=== PATIENT | male | born 1990 | race African-American/Black ===

== ENCOUNTER 2021-12-12 15:54 | Emergency (ER) | payer SELFPAY ==
[2021-12-12 15:56] VITALS: BP 142/81; PULSE 78; RESP 18; TEMP 36.4; O2SAT 100
--- NOTE | 2021-12-12 16:37 | PC.NURSE ---
PT states he wants to receive care somewhere cheaper
--- NOTE | 2021-12-12 22:10 | ED_ITS ---
HPI - General Adult General Chief complaint: Unspecified Stated complaint: constipation Time Seen by Provider: 12/12/21 16:28 Related Data Allergies Allergy/AdvReac Type Severity Reaction Status Date / Time No Known Allergies Allergy Unverified 10/02/17 06:35 [facility] Social History Social History Smoking status: Never smoker Course Vital Signs Vital signs: Vital Signs Temperature 97.5 F L 12/12/21 15:56 Pulse Rate 78 12/12/21 15:56 Respiratory Rate 18 12/12/21 15:56 Blood Pressure 142/81 H 12/12/21 15:56 Pulse Oximetry 100 12/12/21 15:56 Oxygen Delivery Room Air 12/12/21 15:56 Temperature 97.5 F L 12/12/21 15:56 Pulse Rate 78 12/12/21 15:56 Respiratory Rate 18 12/12/21 15:56 Blood Pressure 142/81 H 12/12/21 15:56 Pulse Oximetry 100 12/12/21 15:56 Oxygen Delivery Room Air 12/12/21 15:56 Medical Decision Making Vital Signs Vital Signs: Vital Signs Temperature 97.5 F L 12/12/21 15:56 Pulse Rate 78 12/12/21 15:56 Respiratory Rate 18 12/12/21 15:56 Blood Pressure 142/81 H 12/12/21 15:56 Pulse Oximetry 100 12/12/21 15:56 Oxygen Delivery Room Air 12/12/21 15:56 Temperature 97.5 F L 12/12/21 15:56 Pulse Rate 78 12/12/21 15:56 Respiratory Rate 18 12/12/21 15:56 Blood Pressure 142/81 H 12/12/21 15:56 Pulse Oximetry 100 12/12/21 15:56 Oxygen Delivery Room Air 12/12/21 15:56 Discharge Plan Discharge Patient Disposition: Left Without Being Sn Triaged Follow-up/Referrals: Rodney Toney MD [Primary Care Provider] -
== END 2021-12-12 16:41 | disposition left against medical advice (07) ==
LOC: ANHED 16:38
PROVIDERS: Emergency Provider Emergency Medicine; PCP Emergency Medicine
DX: R19.4 Change in bowel habit (principal)
CPT/HCPCS: 99199

== ENCOUNTER 2022-02-10 02:06 | Day surgery (SDC) | payer BC, SELFPAY ==
[2022-01-25 13:58] VITALS: BMI 25.5
--- NOTE | 2022-02-10 07:47 | WPDANESEPPF ---
Anes - Initial Pre Proc Eval Procedure: Operation Date: 02/10/22 10:00 Proposed Procedures p Colonoscopy - Lisandro Rosado MD Date/Time: 02/10/22 07:47 Surgeon: Lisandro Rosado MD Pre Op Diagnosis: melena, anemia Patient Data Age: 31 Gender: M Height: 1.85 m Weight: 87.9 kg Allergies Allergy/AdvReac Type Severity Reaction Status Date / Time No Known Allergies Allergy Verified 02/10/22 08:38 Home Medications Medication Instructions Recorded Confirmed Type docusate sodium 100 mg capsule 100 mg PO ONCE PRN st 12/21/21 02/10/22 History multivitamin 1 tablet PO DAILY 12/21/21 02/10/22 History Patient hx anesthesia problems: none Family hx anesthesia problems: none Results Review: All pre-operative results and documents have been reviewed as part of the pre-operative evaluation. [facility] Social History Social History Smoking status: Never smoker Alcohol intake: current Drinks per week: 4 Substance use: current Substance use type: marijuana Living arrangements: alone Spiritual care concerns: No Anes - Eval Final PreProcedure Day of Procedure 02/10/22 07:47 Patient weight: normal Heart: regular rate and rhythm Lungs: clear to auscultation and normal air movement Airway: Mallampati scale class II Neurological: alert and oriented Last oral intake: >/= 8 hours ASA classification: II Emergent: no Anesthetic plan: proceed Anesthesia type and monitoring: general GIVS Results Review: All pre-operative results and documents have been reviewed as part of the pre-operative evaluation. Informed Consent: The patient's anesthetic plan and its attendant risks and benefits were discussed with the patient/family/POA. Questions were solicited and answers provided to the satisfaction of the patient/family/POA.
[2022-02-10 08:39] VITALS: BP 124/80; PULSE 58; RESP 16; TEMP 36.9; O2SAT 100; BMI 25.8
[2022-02-10] MEDS: LACTATED RINGERS 1,000 ML 150 ML IV CONT (08:50)
--- NOTE | 2022-02-10 09:11 | PM.HPGS ---
History of Present Illness History of Present Illness Consent: Risks, benefits, and alternatives have been discussed and questions answered. Patient agrees to proceed with procedure. Chief complaint: melena, anemia Narrative: Liam Darby is a 31 year old male with intermittent blood in stool after defecation, never had colonoscopy Review of Systems Constitutional: Constitutional: Denies headache(s) and Denies weakness Eyes: Eyes: Denies blurry vision ENT: Reports Normal hearing present, Denies headache(s) and Denies neck pain Cardiovascular: Cardiovascular: Denies chest pain and Denies dyspnea Respiratory: Respiratory: Denies dyspnea Gastrointestinal: Gastrointestinal: Reports no additional gastrointestinal complaints Genitourinary: Genitourinary: Denies dysuria Musculoskeletal: Musculoskeletal: Denies neck pain Integumentary/Breasts: Skin/Breast: Denies dry skin Neurologic: Reports Normal hearing present, Denies headache(s) and Denies weakness Psychiatric: Psychiatric: Denies anxiety Endocrine: Endocrine: Denies change in body appearance Hematologic/Lymphatic: Hematologic/Lymphatic: Denies easy bleeding Allergic/Immunologic: Allergic/Immunologic: Denies urticaria PMFSH Social History Social History Smoking status: Never smoker Alcohol intake: current Drinks per week: 4 Substance use: current Substance use type: marijuana Living arrangements: alone Spiritual care concerns: No Meds Home Medications and Allergies Home Medications Medication Instructions Recorded Confirmed Type docusate sodium 100 mg capsule 100 mg PO ONCE PRN st 12/21/21 02/10/22 History multivitamin 1 tablet PO DAILY 12/21/21 02/10/22 History Allergies Allergy/AdvReac Type Severity Reaction Status Date / Time No Known Allergies Allergy Verified 02/10/22 08:38 Vital Signs Vital Signs - 24 hr 02/10/22 08:39 Temperature 98.4 F Pulse Rate 58 L Respiratory Rate 16 Blood Pressure 124/80 Pulse Oximetry 100 Oxygen Delivery Room Air Exam Const: General: comfortable and no acute distress HENMT: General nose exam: Normal nares present Eyes: General: appearance normal, both eyes and all related structures Neck: Neck: no JVD Resp: Auscultation: clear to auscultation bilaterally Cardio: Rate: regular rate Rhythm: regular rhythm GI: Inspection: non-distended GI Palp: Yes Soft to palpation Skin: General skin exam: normal color Neuro: General: gait normal Speech: normal speech Extrem: General: normal to inspection Psych: Mental Status: mental status grossly normal Assessment and Plan Assessment and plan (1) Bloody stools: Code(s): K92.1 - Melena Status: Acute Assessment and Plan: probably perianal but we need to do a colonoscopy to rule out other conditions
[2022-02-10 09:46] VITALS: BP 113/72; PULSE 68; RESP 15; O2SAT 100
[2022-02-10 09:56] VITALS: BP 118/74; PULSE 65; RESP 16; O2SAT 100
[2022-02-10 10:06] VITALS: BP 109/63; PULSE 59; RESP 15; O2SAT 100
== END 2022-02-10 10:09 | disposition home or self-care (01) ==
PROVIDERS: PCP Emergency Medicine; Visit Provider Internal Medicine Gastroenterology
PROC: 0DJD8ZZ Inspection of Lower Intestinal Tract, Via Natural or Artificial Opening Endoscopic (ICD-10-PCS; CPT 45378; principal; 2022-02-10 10:00)
DX: K92.1 Melena (principal); K64.8 Other hemorrhoids; D64.9 Anemia, unspecified; F12.90 Cannabis use, unspecified, uncomplicated
CPT/HCPCS: 45378; J2001; J2704; J7120